=== PATIENT | female | born 1970 ===

== ENCOUNTER 2020-12-20 16:52 | Inpatient (IN) | payer OTHER ==
[~2020-12-20] VITALS: Ht 165.1 cm; Wt 53.5 kg
[2020-12-20] MEDS ORDERED: LAMOTRIGINE100 MG (17:36)
[2020-12-20] MEDS ORDERED: NEXIUM20 M1 (17:36)
== END 2020-12-26 18:44 | disposition home or self-care (01) | DRG 379 ==
LOC: ER 16:52 → MEDI 12-21 13:14
PROVIDERS: ADMIT Internal Medicine; ATTEND Internal Medicine
PROC: 30233N1 Transfusion of Nonautologous Red Blood Cells into Peripheral Vein, Percutaneous Approach (ICD-10-PCS; principal; 2020-12-26)
DX: K62.5 Hemorrhage of anus and rectum (principal); D64.9 Anemia, unspecified; K59.00 Constipation, unspecified; Z20.822 Contact with and (suspected) exposure to COVID-19